=== PATIENT | female | born 1935 | race Caucasian/White ===

== ENCOUNTER 2022-08-12 08:00 | Outpatient (CLI) | payer MEDICARE | END 2022-08-12 08:05 | disposition home or self-care (01) | LOC: PET 08:00 → EDSTATUS 12:30 | PROVIDERS: ATTEND Family Medicine | DX: C50.412 Malignant neoplasm of upper-outer quadrant of left female breast (principal); M89.9 Disorder of bone, unspecified; E04.1 Nontoxic single thyroid nodule | CPT/HCPCS: 78815; A9552 ==